=== PATIENT | female | born 2005 | race American Indian/Alaskan Native ===

== ENCOUNTER 2024-09-14 17:58 | Emergency (ER) | payer MEDICAID, SELFPAY ==
[2024-09-14 18:14] VITALS: BP 116/73; PULSE 101; RESP 18; TEMP 36.8; O2SAT 97; BMI 28.3
== END 2024-09-14 22:05 | disposition left against medical advice (07) ==
PROVIDERS: Emergency Provider Emergency Medicine

== ENCOUNTER 2024-09-14 23:38 | Emergency (ER) | payer MEDICAID, SELFPAY ==
[2024-09-14 23:43] VITALS: BP 97/58; PULSE 80; RESP 16; TEMP 36.8; O2SAT 98; BMI 28.3
--- NOTE | 2024-09-15 01:26 | ED.ABDPAIN ---
HPI - Abdominal Pain General Chief Complaint: Abdominal Pain Stated Complaint: abd pain Time Seen by Provider: 09/15/24 01:22 Source: patient and EMS Mode of arrival: EMS History of Present Illness HPI narrative: Patient is a 19-year-old female history of UTI Kim vulvovaginitis presenting today with ongoing abdominal pain. She was seen and evaluated at [facility] on September 10 records have been reviewed she had blood work urinalysis a CT KUB and a pelvic ultrasound she has had left lower quadrant pain at that time ongoing for number of days. She was test for for gonorrhea chlamydia at that time as well which was also negative. Today she continues to have left-sided abdominal pain. She says it is worse she could not ride in the car. She was actually in the waiting room for awhile she missed when we called her name the 1st time and again 2nd time she was out vaping ultimately called 911 and came in. She says she denies any nausea or vomiting she continues to have bowel movement she is eating. No fever. She takes Tylenol and ibuprofen for pain and it does help some. She has had this pain ongoing for about 3 weeks Related Data Home Medications Medication Instructions Recorded Confirmed No Known Home Medications 09/14/24 09/14/24 Allergies Allergy/AdvReac Type Severity Reaction Status Date / Time No Known Drug Allergies Allergy Verified 09/14/24 18:20 Patient History Social History Smoking Status: Current every day smoker Smoking Status: Current every day smoker tobacco type: vaping alcohol intake frequency: holidays/special occasions only Alcohol type: hard liquor Substance Use Type: marijuana Exam Initial Vital Signs Initial Vital Signs: Vital Signs Temperature 98.3 F 09/14/24 23:43 Pulse Rate 80 09/14/24 23:43 Respiratory Rate 16 09/14/24 23:43 Blood Pressure 97/58 L 09/14/24 23:43 Pulse Oximetry 98 09/14/24 23:43 Oxygen Delivery Method Room Air 09/14/24 23:43 GENERAL: Alert 19-year-old female not appear toxic and in no acute distress. HEENT: Head atraumatic,EOMI, pupils reactive, face symmetric, moist mucous membranes CARDIOVASCULAR: Regular rate and rhythm without murmurs, rubs or gallops. RESPIRATORY: Breath sounds equal bilaterally, no wheezes rales or rhonchi. ABDOMEN: Soft, diffusely tender more on left than right side EXTREMITIES: Normal range of motion, no clubbing or edema. Neurovascularly intact NEUROLOGICAL: Alert and oriented x4.Normal gait and speech. Cranial nerves II through XII grossly intact. SKIN: Warm, dry, no laceration, no petechiae, no rashes or lesions. Course Orders Ordered: ED Orders 09/15/24 01:36 CT abdomen pelvis w con Stat CBC Auto Diff [Complete Blood Count AUTO DIFF] Stat CMP [Comprehensive Metabolic Panel] Stat Lipase Stat 09/15/24 01:52 Test Serum,Qual Stat Discontinued Medications Ketorolac Tromethamine (Ketorolac 30 Mg/Ml Vial) 15 mg IV NOW ONE Stop: 09/15/24 01:37 Last Admin: 09/15/24 02:07 Dose: 15 mg Documented By: SANNA Vital Signs Vital signs: Vital Signs - 8 hr 09/14/24 23:43 09/15/24 03:19 Temperature 98.3 F Pulse Rate 80 78 Respiratory Rate 16 16 Blood Pressure 97/58 L 100/65 Pulse Oximetry 98 100 Oxygen Delivery Method Room Air Room Air MDM - Abdominal Pain Lab Data 09/14/24 23:15 09/14/24 23:15 Labs: Lab Results 09/14/24 Range/Units 23:15 WBC 10.6 (4.5-11.0) X10^3/uL RBC 4.27 (4.0-5.2) X10^6/uL Hgb 13.1 (12.0-16.0) g/dL Hct 38.4 (36-46) % MCV 89.9 (80-100) fL MCH 30.6 (26-34) PG MCHC 34.1 (30-36) % RDW 15.5 H (11.6-14.8) % Plt Count 443 H (150-400) X10^3/uL Neut % (Auto) 61.8 (50-75) % Lymph % (Auto) 32.0 (25-40) % [place] % (Auto) 4.1 (3-14) % Eos % (Auto) 1.4 L (2-4) % Baso % (Auto) 0.7 (0-2) % Neut # (Auto) 6500 (9360-0008) /uL Lymph # (Auto) 3400 (4471-1759) /uL [place] # (Auto) 400 (0-900) /uL Eos # (Auto) 100 (0-450) /uL Baso # (Auto) 100 (0-100) /uL Sodium 139 (137-145) mmol/L Potassium 3.7 (3.4-5.1) mmol/L Chloride 106 (98-107) mmol/L Carbon Dioxide 26 (22-32) mmol/L BUN 8 (7-17) mg/dL Creatinine 0.52 (0.52-1.04) mg/dL Estimated GFR > 60 (>60) mL/min BUN/Creatinine Ratio 15.4 (6-22) Glucose 110 H (70-100) mg/dL Calcium 9.1 (8.4-10.2) mg/dL Total Bilirubin 0.4 (0.2-1.3) mg/dL AST 44 H (14-36) IU/L ALT 32 (<35) IU/L Alkaline Phosphatase 103 (38-126) U/L Total Protein 8.1 (6.3-8.2) g/dL Albumin 4.7 (3.5-5.0) g/dL Globulin 3.4 (1.7-4.1) g/dL Albumin/Globulin Ratio 1.4 (1.0-2.8) Lipase 62 (23-300) U/L Serum , Qual Negative (Negative) Imaging Data CT scan - abdomen/pelvis: Radiologist's Impression: Preliminary report no evidence of colitis diverticulitis bowel obstruction or obstructive uropathy. Appendix is not visualized MDM Narrative Medical decision making narrative: MDM CC: Abdominal Complicating co-morbidities: Healthy Medical records reviewed: Records from [facility] received and reviewed she was seen there on September 11 for the same Differential considered: Diverticulitis nephrolithiasis Exam documented above, pertinent findings include: Abdomen diffusely tender more in left lower quadrant than anywhere else Lab Test results independently reviewed as above. Pertinent findings: WBC 10.6 Sodium 139 potassium 3.7 chloride 106 carbon dioxide 26 BUN 8 creatinine 0.52 glucose 110 Bilirubin 0.4 AST 44 ALT 32 alk-phos 103 test negative Imaging studies independently reviewed: CT abdomen and pelvis no acute abnormality Treatments: Toradol Re-evaluations: After Toradol patient is sitting up playing video games appears well Discussion: Patient 19-year-old female who presents today with ongoing left abdominal pain for the last 3 weeks. She had ultrasound and full workup at outside facility. Today she would repeat CT with contrast which did not show any significant abnormality. Blood work is overall reassuring. She has not . At this time recommend outpatient follow-up for further testing Discharge Plan Departure Patient Disposition: Home Clinical Impression: Abdominal pain Instructions: DI for Abdominal Pain-Adult Activity Restrictions/Additional Instructions: *You have been diagnosed with abdominal pain *What to do: At this time I recommend you follow-up with your primary care provider. You may require a GI referral and or colonoscopy. Today blood work and CT do not show any abnormality *Continue to take medications as directed Tylenol no Motrin as needed for pain *Follow up with your primary care provider in 2-3 days or call [phone] *Return to ER if you should have any new, worsening or concerning symptoms Prescriptions: No Action No Known Home Medications Referrals: Miscellaneous,DoctorMD [Primary Care Provider] - Stand Alone Forms: Patient Portal/API/Survey, Work Release Note
--- NOTE | 2024-09-15 01:36 | DI.CT.S_ITS ---
PROCEDURE: CT ABDOMEN PELVIS W CON INDICATIONS: left lower quad pain TECHNIQUE: After the administration of intravenous contrast, axial sections acquired from the lung bases to the pubic symphysis. Coronal and sagittal reformats were performed. For radiation dose reduction, the following was used: automated exposure control, adjustment of mA and/or kV according to patient size. COMPARISON: [facility], CT, CT KUB, 09/10/2024, 22:26. FINDINGS: Image quality: Diagnostic Lower chest: Unremarkable lung bases. Mildly patulous distal esophagus. Liver: Unremarkable Gallbladder and biliary system: Unremarkable, nondilated Pancreas: No ductal dilation Spleen: Nonenlarged Adrenals: No discrete nodules Kidneys: No hydronephrosis. No solid renal mass. Subcentimeter lesions are too small to characterize, usually cysts. Vessels and lymph nodes: The main portal vein is patent. No abdominal aortic aneurysm No pathologic lymph nodes by size criteria. Bowel and peritoneum: No small bowel obstruction. No pathologic ascites. No acute inflammatory changes in the bowel. The sigmoid colon is redundant. Body wall: Unremarkable Pelvis: Bladder is under distended. Reproductive organs appear unremarkable on limited CT evaluation Retroverted uterus. Bones: No acute or suspicious osseous finding. IMPRESSION: Redundant sigmoid colon, without mesenteric edema. No acute inflammation identified. No small bowel obstruction. Other findings as above. No significant discrepancy from the prelim report. Dictated by: Pk Yoon M.D. on 09/15/2024 at 7:40 Approved by: Pk Yoon M.D. on 09/15/2024 at 7:52
[2024-09-15 01:50] LABS: Add Manual Diff / Slide Review NO; Basophils Absolute Auto 100 /uL (0-100); Basophils Percent Auto 0.7 % (0-2); Eosinophils Absolute Auto 100 /uL (0-450); Eosinophils Percent Auto 1.4 % (2-4); Hematocrit 38.4 % (36-46); Hemoglobin 13.1 g/dL (12.0-16.0); Lymphocytes Absolute Auto 3400 /uL (1100-4500); Mean Corpuscular HGB Conc 34.1 % (30-36); Mean Corpuscular Hemoglobin 30.6 PG (26-34); Mean Corpuscular Volume 89.9 fL (80-100); Monocytes Absolute Auto 400 /uL (0-900); Monocytes Percent Auto 4.1 % (3-14); Neutrophils Absolute Auto 6500 /uL (1500-7000); Neutrophils Percent Auto 61.8 % (50-75); Platelet Count 443 X10^3/uL (150-400); Red Blood Cell Count 4.27 X10^6/uL (4.0-5.2); Red Cell Distribution Width 15.5 % (11.6-14.8); White Blood Cell Count 10.6 X10^3/uL (4.5-11.0)
[2024-09-15 02:05] LABS: Alanine Aminotransferase 32 IU/L (<35); Albumin 4.7 g/dL (3.5-5.0); Albumin Globulin Ratio 1.4 (1.0-2.8); Alkaline Phosphatase 103 U/L (38-126); Aspartate Aminotransferase 44 IU/L (14-36); BUN Creatinine Ratio 15.4 (6-22); Bilirubin Total 0.4 mg/dL (0.2-1.3); Blood Urea Nitrogen 8 mg/dL (7-17); Calcium 9.1 mg/dL (8.4-10.2); Carbon Dioxide 26 mmol/L (22-32); Chloride 106 mmol/L (98-107); Estimated Glomerular Filt Rate > 60 mL/min (>60); Globulin 3.4 g/dL (1.7-4.1); Glucose 110 mg/dL (70-100); HEMOLYSIS < 15 (0-50); Lipase 62 U/L (23-300); Potassium 3.7 mmol/L (3.4-5.1); Sodium 139 mmol/L (137-145); Total Protein 8.1 g/dL (6.3-8.2)
[2024-09-15 02:07] LABS: Pregnancy Test Serum,Qual Negative (Negative)
[2024-09-15] MEDS: KETOROLAC 30 MG/ML VIAL 15 MG IV (02:07)
[2024-09-15 03:19] VITALS: BP 100/65; PULSE 78; RESP 16; O2SAT 100
== END 2024-09-15 03:21 | disposition home or self-care (01) ==
PROVIDERS: Emergency Provider Emergency Medicine
DX: R10.9 Unspecified abdominal pain (principal)
CPT/HCPCS: 74177; 80053; 83690; 84703; 85025; 96374; 99281; 99283; 99284; J1885; Q9967